=== PATIENT | male | born 1990 | race Caucasian/White ===

== ENCOUNTER 2018-02-06 20:52 | Emergency (ER) | payer BC ==
[~2018-02-06] VITALS: Ht 182.9 cm; Wt 131.5 kg
[~2018-02-06 20:52] MED LIST: CEPH500 PO; CRUTCH3 USE; DIPH25 PO; HYDACE5 PO; IBUP600 PO; IBUP800 PO; NAPR500 PO; NEOCOLOTSU RIGHTEAR; NORT10; Norco 5-325 Ta1 EACH PO; OSEL75CA PO; OXYACE5T PO; PRED10 PO; PROM25 PO; Percocet 5-3251 EACH PO; Phentermine HCl30 MG PO; RXOXYACE PO; SULTRIDS PO; SUMA25 PO; ZOLP5 PO; Zofran Odt8 MG SL; [UNRECOGNIZED DRUG - REMARK]
[2018-02-06] MEDS ORDERED: OSEL75CA PO (21:37)
[2018-02-06] MEDS ORDERED: Zofran Odt4 MG SL (21:37)
== END 2018-02-06 21:52 | disposition home or self-care (01) ==
LOC: ER 20:52
DX: J11.1 Influenza due to unidentified influenza virus with other respiratory manifestations (principal); J45.909 Unspecified asthma, uncomplicated; F17.210 Nicotine dependence, cigarettes, uncomplicated
CPT/HCPCS: 99283

== ENCOUNTER 2018-03-28 20:53 | Emergency (ER) | payer BC ==
[~2018-03-28] VITALS: Ht 182.9 cm; Wt 131.5 kg
[~2018-03-28 20:53] MED LIST changes: +Zofran Odt4 MG SL
[2018-03-28] MEDS ORDERED: Keflex500 MG PO (21:48)
== END 2018-03-28 21:59 | disposition home or self-care (01) ==
LOC: ER 20:53
DX: L02.31 Cutaneous abscess of buttock (principal); Z88.8 Allergy status to other drugs, medicaments and biological substances; J45.909 Unspecified asthma, uncomplicated; F17.200 Nicotine dependence, unspecified, uncomplicated
CPT/HCPCS: 99283

== ENCOUNTER 2018-05-29 18:42 | Emergency (ER) | payer BC ==
[~2018-05-29] VITALS: Ht 182.9 cm; Wt 131.5 kg
[~2018-05-29 18:42] MED LIST changes: +Keflex500 MG PO
[2018-05-29] MEDS ORDERED: IBUP600 PO (20:09)
== END 2018-05-29 20:32 | disposition home or self-care (01) ==
LOC: ER 18:42
DX: S86.911A Strain of unspecified muscle(s) and tendon(s) at lower leg level, right leg, initial encounter (principal); J45.909 Unspecified asthma, uncomplicated; F17.210 Nicotine dependence, cigarettes, uncomplicated; Z79.899 Other long term (current) drug therapy; X58.XXXA Exposure to other specified factors, initial encounter
CPT/HCPCS: 29505; 73562-RT; 99283-25

== ENCOUNTER 2019-04-21 13:41 | Emergency (ER) | payer BC, SELFPAY ==
[~2019-04-21] VITALS: Ht 182.9 cm; Wt 136.1 kg
[2019-04-21] MEDS ORDERED: DIBU30TO PR (14:21)
[2019-04-21] MEDS ORDERED: HYDACE25S PR (14:21)
[2019-04-21] MEDS ORDERED: PRAHYD1AE TOP (14:21)
[2019-04-22] MEDS ORDERED: Keflex500 MG PO (08:53)
[2019-04-22] MEDS ORDERED: Kristalose20 GM PO (08:53)
[2019-04-22] MEDS ORDERED: Percocet 5-3251 EACH PO (08:53)
[2019-05-01] MEDS ORDERED: POLY500 PO (14:16)
[2019-07-24] MEDS ORDERED: ANTIBIOTICS (10:20)
== END 2019-04-21 14:41 | disposition home or self-care (01) ==
LOC: ER 13:41
DX: K64.4 Residual hemorrhoidal skin tags (principal); F17.210 Nicotine dependence, cigarettes, uncomplicated
CPT/HCPCS: 99282

== ENCOUNTER 2019-04-22 06:22 | Emergency (ER) | payer BC, OTHER ==
[~2019-04-22] VITALS: Ht 182.9 cm; Wt 136.1 kg
[~2019-04-22 06:22] MED LIST changes: +DIBU30TO PR; +HYDACE25S PR; +PRAHYD1AE TOP
[2019-04-22] MEDS ORDERED: Percocet 5-3251 EACH PO (08:53)
[2019-04-22] MEDS ORDERED: Kristalose20 GM PO (08:53)
[2019-04-22] MEDS ORDERED: Keflex500 MG PO (08:53)
[2019-05-01] MEDS ORDERED: POLY500 PO (14:16)
[2019-07-24] MEDS ORDERED: ANTIBIOTICS (10:20)
== END 2019-04-22 09:10 | disposition home or self-care (01) ==
LOC: ER 06:22
DX: K64.4 Residual hemorrhoidal skin tags (principal); Z79.899 Other long term (current) drug therapy; J45.909 Unspecified asthma, uncomplicated; F17.210 Nicotine dependence, cigarettes, uncomplicated
CPT/HCPCS: 46083; 96372-59; 99282-25; J1170

== ENCOUNTER 2019-05-03 06:59 | Day surgery (SDC) | payer BC, SELFPAY ==
[~2019-05-03] VITALS: Ht 180.3 cm; Wt 137.8 kg
[~2019-05-03 06:59] MED LIST changes: +Kristalose20 GM PO; +POLY500 PO
--- NOTE | 2019-05-03 07:19 | NUR ---
INTO [facility] ADMISSION STARTED TO UNIT.Ambulatory in Day Surgery History, Chart, Medications and Allergies reviewed before start of procedure.Lungs clear T/O to Auscultation. Patient States Post-Procedure ride home has been arranged. Patient confirms NPO status and agrees with scheduled surgery.
--- NOTE | 2019-05-03 10:16 | NUR ---
report from rashad hogue, assumed care. provided pudding, cameron water.
--- NOTE | 2019-05-03 10:46 | NUR ---
DRESSING TO GLUTEAL FOLD REMAINED CDI. OBSEREVED DRESSING AND TAPE AND VERBALIZES UNDERSTANDING OF CARE. Patient up to Ambulate independently. Gait steady. Discharge instructions reviewed with patient. Patient verbalizes understanding. Copy given to patient to take home. Patient States Post-Procedure ride home has been arranged. Discharged via wheelchair to private car for ride home. ALL BELONINGS RETUNED TO PATIENT.
[2019-07-24] MEDS ORDERED: ANTIBIOTICS (10:20)
== END 2019-05-03 23:24 | disposition home or self-care (01) ==
LOC: ORSCMMR 06:59 → ORD 08:30 → ORSCMMR 08:30
PROVIDERS: Surgery
PROC: 0DQQ7ZZ Repair Anus, Via Natural or Artificial Opening (ICD-10-PCS; principal; 2019-05-03 08:30)
PROC: 0DJD3ZZ Inspection of Lower Intestinal Tract, Percutaneous Approach (ICD-10-PCS; principal; 2019-05-03 08:30)
DX: K60.5 Anorectal fistula (principal); E66.01 Morbid (severe) obesity due to excess calories; Z68.41 Body mass index [BMI] 40.0-44.9, adult
CPT/HCPCS: J1100; J1885; J1956; J2405; J2704; J3010; J7120

== ENCOUNTER 2019-07-29 06:06 | Day surgery (SDC) | payer BC, SELFPAY ==
[~2019-07-29] VITALS: Ht 180.3 cm; Wt 138.9 kg
[~2019-07-29 06:06] MED LIST changes: +ANTIBIOTICS
--- NOTE | 2019-07-29 06:32 | NUR ---
History, Chart, Medications and Allergies reviewed before start of procedure. Patient confirms NPO status and agrees with scheduled surgery. Patient States Post-Procedure ride home has been arranged with his .
--- NOTE | 2019-07-29 09:21 | NUR ---
PT TO STEP. GAUZE DRESSING IN PLACE. NO DRAINAG NOTED. STATES MILD NAUSEA, STATES THAT ANTIEMETICS GIVEN IN PACU HELPED. REQUESTING WATER.
--- NOTE | 2019-07-29 10:09 | NUR ---
WRITTEN AND VERBAL D/C INSTUCTIONS GIVEN TO PT WITH STATED UNDERSTANDING.
--- NOTE | 2019-07-29 10:27 | NUR ---
PT REFUSED W/C RIDE OUT DO TO PAIN WITH SITTING. PT AMBULATED OUT WITH RN AT SIDE.
== END 2019-07-29 22:54 | disposition home or self-care (01) ==
LOC: ORSCMMR 06:06 → ORD 07:30 → ORSCMMR 07:30
PROVIDERS: Surgery
PROC: 0DJD7ZZ Inspection of Lower Intestinal Tract, Via Natural or Artificial Opening (ICD-10-PCS; principal; 2019-07-29 07:30)
PROC: 0DBQ0ZZ Excision of Anus, Open Approach (ICD-10-PCS; principal; 2019-07-29 07:30)
PROC: 0DBP0ZZ Excision of Rectum, Open Approach (ICD-10-PCS; principal; 2019-07-29 07:30)
DX: K60.5 Anorectal fistula (principal); G47.33 Obstructive sleep apnea (adult) (pediatric); E66.01 Morbid (severe) obesity due to excess calories
CPT/HCPCS: A9270-GY; J1100; J1885; J1956; J2405; J2550; J2704; J2710; J3010; J7120

== ENCOUNTER 2022-11-26 19:59 | Emergency (ER) | payer BC, SELFPAY, OTHER ==
[~2022-11-26] VITALS: Ht 182.9 cm; Wt 146.3 kg
== END 2022-11-26 20:44 | disposition home or self-care (01) ==
LOC: ER 19:59
DX: S61.412A Laceration without foreign body of left hand, initial encounter (principal); W45.8XXA Other foreign body or object entering through skin, initial encounter; J45.909 Unspecified asthma, uncomplicated; F17.210 Nicotine dependence, cigarettes, uncomplicated; Z23 Encounter for immunization
CPT/HCPCS: 90714

== ENCOUNTER 2023-03-11 05:13 | Emergency (ER) | payer BC, OTHER ==
[~2023-03-11] VITALS: Ht 182.9 cm; Wt 140.6 kg
[2023-03-11 05:26] VITALS: BP 132/85
[2023-03-11] MEDS ORDERED: AMOX875 PO (07:30)
== END 2023-03-11 07:49 | disposition home or self-care (01) ==
LOC: ER 05:13
DX: H66.91 Otitis media, unspecified, right ear (principal); J45.909 Unspecified asthma, uncomplicated; F17.210 Nicotine dependence, cigarettes, uncomplicated
CPT/HCPCS: 96372; 99282-25; A9270; J1885